=== PATIENT | female | born 1995 | race Caucasian/White ===

== ENCOUNTER 2023-08-20 23:47 | Emergency (ER) | payer OTHER, SELFPAY ==
[2023-08-21 00:01] VITALS: BP 122/79; PULSE 69; RESP 16; TEMP 36.1; O2SAT 98; BMI 31.9
[2023-08-21 00:21] LABS: Hematocrit 39.1 % (37.0-47.0); Hemoglobin 13.2 g/dl (12.0-16.0); Mean Corpuscular HGB Conc 33.8 g/dl (31.0-35.0); Mean Corpuscular Hemoglobin 32.2 pg (27.0-33.0); Mean Corpuscular Volume 95.4 fL (80.0-98.0); Mean Platelet Volume 9.9 fL (9.4-12.3); Platelet Count 333 X10*3/uL (160-400); White Blood Count 8.2 X10*3/uL (4.8-10.8)
[2023-08-21 00:29] LABS: UPreg QC Valid YES; Urine Pregnancy NEGATIVE (NEGATIVE)
--- NOTE | 2023-08-21 00:31 | MHC.EDTECH ---
PATIENT BLOOD DRAWN AND URINE SAMPLE COLLECTED AND SENT TO LAB .
[2023-08-21 00:32] LABS: Appearance Urine Clear; Color Urine Yellow; Glucose Urine UA Negative (Negative); Leukocyte Esterase Urine Negative (Negative); Nitrite Urine Negative (Negative); Specific Gravity - Urine >= 1.030 (1.005-1.025); Urine Blood Negative (Negative); Urine Ketones Negative (Negative); Urine Protein Trace mg/dL (Neg-Trace)
[2023-08-21 00:35] LABS: Bacteria Urine 1+ (None Seen); Hyaline Casts Urine 0-2 /LPF (0-2); WBC Urine 0-5 /HPF (0-5)
[2023-08-21 00:42] LABS: Alanine Aminotransferase 25 U/L (0-31); Alkaline Phosphatase 57 U/L (39-117); Anion Gap 15 (12-20); Aspartate Amino Transferase 22 U/L (5-31); Bilirubin Total 0.3 mg/dL (0.0-1.0); Blood Urea Nitrogen 7 mg/dL (9-16); Calcium 9.5 mg/dL (8.4-10.2); Carbon Dioxide 22 mmol/L (22-29); Chloride 109 mmol/L (96-108); Creatinine Clr Calc Pharmacy 104.2; Estimated Glomerular Filt Rate > 60; Glucose Random 99 mg/dL (60-115); Lipase 31 U/L (8-78); Potassium 3.7 mmol/L (3.3-5.1); Sodium 142 mmol/L (135-145); Total Protein 6.9 g/dL (6.5-8.0)
[2023-08-21 01:38] VITALS: BP 105/65; PULSE 61; RESP 14; TEMP 36.5; O2SAT 98
[2023-08-21 02:09] VITALS: BP 105/64; PULSE 63; RESP 18; O2SAT 100
--- NOTE | 2023-08-21 02:10 | MHC.EDTECH ---
Hourly rounds and vitals completed. patient is resting comfortably at this time and call barcenas within reach.
[2023-08-21] MEDS: Ondansetron ODT 4 MG TAB.RAPDIS TRANSLINGU (03:19)
--- NOTE | 2023-08-21 03:19 | ED_ITS ---
HPI - Abdominal Pain General Chief Complaint: Abdominal Pain Stated Complaint: Vomiting, Diarrhea Time Seen by Provider: 08/21/23 03:04 Source: patient Mode of arrival: ambulatory Limitations: no limitations History of Present Illness HPI narrative: 28-year-old female presents with nausea, vomiting, diarrhea and abdominal pain. Symptoms started 3 weeks ago. The symptoms are daily. They seem to be exacerbated by eating and drinking. She describes symptoms as severe. The cramping is mostly in the upper abdominal area and sometimes radiates downward. She denies any blood in the stool or vomitus. She has had no fevers or chills. She denies any recent weight loss. There are no clear foods that are exacerbating her symptoms. She has had a cholecystectomy in the past. Related Data Previous Rx's Medication Instructions Recorded amoxicillin 500 mg tablet 500 mg PO Q12H 10 days #20 tabs 01/06/22 fluticasone propionate 50 1 spray intranasal BID 30 days #16 01/06/22 mcg/actuation nasal grams spray,suspension (Flonase Allergy Relief) dicyclomine 20 mg tablet 20 mg PO QID PRN abdominal pain 08/21/23 #30 tabs famotidine 20 mg tablet 20 mg PO BID #30 tabs 08/21/23 metoclopramide HCl 10 mg tablet 10 mg PO Q6H PRN nausea and 08/21/23 (Reglan) vomiting #14 tabs Allergies Allergy/AdvReac Type Severity Reaction Status Date / Time No Known Allergies Allergy Unverified 08/05/20 18:53 [No Known Allergies*] Review of Systems Review of Systems CONSTITUTIONAL: Denies weight loss, fever and chills. HEENT: Denies changes in vision and hearing. RESPIRATORY: Denies SOB and cough. CV: Denies palpitations no CP. GI: + abdominal pain, nausea, vomiting and diarrhea. : Denies dysuria and urinary frequency. MSK: Denies myalgia and joint pain. SKIN: Denies rash and pruritus. NEUROLOGICAL: Denies headache and syncope. PSYCHIATRIC: Denies recent changes in mood. Denies anxiety and depression. All other ROS are negative unless in HPI PMFSH Social History Social History Alcohol intake: never Smoked in Last 30 Days: Yes Use of substances other than those prescribed or required for medical reasons: Yes Substance Use Type: Marijuana Advance Directives: No Advance Directives Information Provided: Yes Advance Directives on File: No Patient : No Physical Exam ED Vital Signs: Vital Signs - 24 hr 08/21/23 00:01 08/21/23 01:38 08/21/23 02:09 Temperature 97.0 F 97.7 F Pulse Rate 69 61 63 Respiratory Rate 16 14 18 Blood Pressure 122/79 105/65 105/64 Pulse Oximetry 98 98 100 Oxygen Delivery Method Room Air Room Air Room Air BMI result Body Mass Index 31.9 GEN: Well developed, no acute distress, alert, oriented HEENT: Normocephalic, atraumatic, normal external ears, nose appears normal, no oropharyngeal edema or exudates Eyes: Normal to appearance Neck: Supple, no lymphadenopathy Respiratory: Talks in complete sentences, no respiratory distress, clear to auscultation bilaterally Cardiovascular: Regular rate and rhythm, no murmurs rubs or gallops Abdomen: Soft, nontender, nondistended, no guarding, no rebound Back: No CVA tenderness Extremities: No clubbing cyanosis or edema Neurologic: No focal neurologic deficits, cranial nerves 2-12 intact, strength is 5/5 bilaterally Skin: No rash Course Course Course Narrative: History 3:20 a.m.. The workup is complete. Belly is benign. Lab work shows no significant abnormalities of liver, pancreas, etc.. There is no urinary tract infection. I suspect patient has either gastritis, IBS, hyperemesis associated with marijuana use. I discussed dietary alterations including reduction of acid with containing foods and beverages, reduction of lactose containing food, food diary. Will try Reglan and dicyclomine. Patient has follow-up with a new primary care provider this week. I will also refer the patient to Gastroenterology. Medical Decision Making Medical Decision Making MDM Narrative: 28-year-old female presents with abdominal pain, nausea, vomiting, diarrhea. Examination is benign. She is status post cholecystectomy. Differential diagnosis includes IBS, IBD, colitis, diverticulitis, GERD, dyspepsia, biliary. Will check routine laboratory analysis and provide patient with a antiemetics. Should there be any significant evidence of renal dysfunction or severe electrolyte abnormality, patient may warrant hospitalization. Will re-evaluate patient following full evaluation of labs. Differential Diagnosis Differential Diagnoses: The differential diagnosis associated with the presentation includes (See above) Admission/Observation Consideration of admission/observation: Escalation of care including admission/observation considered Lab Data MDM Lab Attestation statement: I reviewed the patient's lab results. 08/21/23 00:16 08/21/23 00:16 Labs: Lab Results 08/21/23 08/21/23 Range/Units 00:16 00:24 WBC 8.2 (4.8-10.8) X10*3/uL RBC 4.10 L (4.20-5.50) X10*6/uL Hgb 13.2 (12.0-16.0) g/dl Hct 39.1 (37.0-47.0) % MCV 95.4 (80.0-98.0) fL MCH 32.2 (27.0-33.0) pg MCHC 33.8 (31.0-35.0) g/dl RDW 13.0 (11.0-16.0) % Plt Count 333 (160-400) X10*3/uL MPV 9.9 (9.4-12.3) fL Absolute Nucleated RBC 0.000 (0.0-0.012) X10*3/uL Nucleated RBC % (auto) 0.0 (0.0-0.2) /100WBC Sodium 142 (135-145) mmol/L Potassium 3.7 (3.3-5.1) mmol/L Chloride 109 H (96-108) mmol/L Carbon Dioxide 22 (22-29) mmol/L Anion Gap 15 (12-20) BUN 7 L (9-16) mg/dL Creatinine 0.82 (0.5-1.4) mg/dL Estim Creat Clear Calc 104.2 Estimated GFR > 60 Random Glucose 99 (60-115) mg/dL Calcium 9.5 (8.4-10.2) mg/dL Total Bilirubin 0.3 (0.0-1.0) mg/dL AST 22 (5-31) U/L ALT 25 (0-31) U/L Alkaline Phosphatase 57 (39-117) U/L Total Protein 6.9 (6.5-8.0) g/dL Albumin 4.0 (3.5-5.0) g/dL Lipase 31 (8-78) U/L Urine Color Yellow Urine Appearance Clear Urine pH 6.0 (5.0-9.0) Ur Specific [place] >= 1.030 H (1.005-1.025) Urine Protein Trace (Neg-Trace) mg/dL Urine Glucose (UA) Negative (Negative) mg/dL Urine Ketones Negative (Negative) mg/dL Urine Blood Negative (Negative) Urine Nitrite Negative (Negative) Ur Leukocyte Esterase Negative (Negative) Urine RBC 3-5 H (0-2) /HPF Urine WBC 0-5 (0-5) /HPF Ur Squamous Epith Cells 6-10 (0-2) /HPF Urine Bacteria 1+ (None Seen) Hyaline Casts 0-2 (0-2) /LPF Urine Test NEGATIVE (NEGATIVE) External Record Review External record reviewed: Outpatient record Prescription Management I considered prescription management with: Other (Antiemetics) Discharge Plan Discharge Clinical Impression: Abdominal pain Patient Disposition: Home, Self-Care Instructions: Diet for Stomach Ulcers and Gastritis (ED), Acute Nausea and Vomiting (ED), Abdominal Pain (ED) Prescriptions: New dicyclomine 20 mg tablet 20 mg PO QID PRN (Reason: abdominal pain) Qty: 30 0RF Rx Instructions: 30 min before eating and before bed metoclopramide HCl [Reglan] 10 mg tablet 10 mg PO Q6H PRN (Reason: nausea and vomiting) Qty: 14 0RF famotidine 20 mg tablet 20 mg PO BID Qty: 30 0RF No Action amoxicillin 500 mg tablet 500 mg PO Q12H 10 Days Qty: 20 0RF fluticasone propionate [Flonase Allergy Relief] 50 mcg/actuation spray,suspension 1 spray intranasal BID 30 Days Qty: 16 0RF Rx Instructions: administer into each nostril Referrals: Og Parker [Physician] - 2 weeks
[2023-08-21 03:41] VITALS: BP 108/79; PULSE 63; RESP 18; O2SAT 98
== END 2023-08-21 03:45 | disposition home or self-care (01) ==
PROVIDERS: Emergency Provider Emergency Medicine
DX: R10.9 Unspecified abdominal pain (principal); F12.90 Cannabis use, unspecified, uncomplicated; Z90.49 Acquired absence of other specified parts of digestive tract; Z79.899 Other long term (current) drug therapy
CPT/HCPCS: 36415; 80053; 81001; 81025; 83690; 85027; 99283; 99284